=== PATIENT | female | born 1990 | race Caucasian/White ===

== ENCOUNTER 2020-12-12 12:49 | Emergency (ER) | payer BC ==
[~2020-12-12] VITALS: Ht 160 cm; Wt 65.0 kg
--- NOTE | 2020-12-12 13:13 | NUR ---
Report received from EMS staff, pt in room on L side curled up and making loud bearing down noises and grunting/crying out noises. Pt changed into gown, yarn skeins examiner completed, and pt found to be dry heaving with scant clear mucous-like "emesis" after forced gagging noted. at bedside states pt has been worked up for possible cyclic vomiting by multiple ER doctors in [place], [place] where they are from, but that her GI MD and PCP think it IBS due to stress. Pt has an anxiety disorder as only other stated PMH and does not take medications for it.
[2020-12-12] MEDS ORDERED: CHOL10003 PO (13:40)
[2020-12-12] MEDS ORDERED: HYDR-826 PO (13:40)
[2020-12-12] MEDS ORDERED: OMEP-110 PO (13:40)
[2020-12-12] MEDS ORDERED: VITA1CAP7 PO (13:40)
--- NOTE | 2020-12-12 14:04 | NUR ---
Pt still rolling on bed back and forth with loud wretching noises but no emesis. Awaiting MD albarado.
--- NOTE | 2020-12-12 14:15 | NUR ---
Attempted to draw labs from IV site started by EMS but unable to get decent back flow. Site flushes easily and NS bolus running wihtout issue now.
[2020-12-12] MEDS ORDERED: ONDANSETRON 2MG/ML, 2ML ONE (14:17)
--- NOTE | 2020-12-12 14:18 | NUR ---
Lab at bedside for draw. Zofran given for nausea.
[2020-12-12] MEDS ORDERED: SODIUM CHLORIDE FLUSH 10ML SYR IVF ONE (14:30)
[2020-12-12] MEDS ORDERED: ONDANSETRON 2MG/ML, 2ML IVPush ONE (14:30)
[2020-12-12] MEDS ORDERED: SODIUM CHLORIDE 0.9% 1,000ML IVBOLUS ONE (14:30)
[2020-12-12 14:42] LABS: ALANINE AMINOTRANSFERASE 21 U/L (12-78); ALBUMIN 3.4 g/dL (3.4-5.0); ANION GAP 13 mmol/L (5-15); BASOPHILS % (AUTO) 1 % (0-1); CHLORIDE 110 mmol/L (98-107); CREATININE 0.81 mg/dL (0.55-1.02); EOSINOPHILS % (AUTO) 0 % (1-7); LYMPHOCYTES % (AUTO) 21 % (22-44); MEAN CORPUSCULAR HEMOGLOBIN 30.8 pg (27.0-34.8); MEAN CORPUSCULAR HGB CONC 33.8 g/dL (32.4-35.8); MEAN PLATELET VOLUME 8.7 fL (7.4-10.4); MONOCYTES % (AUTO) 6 % (2-9); NEUTROPHILS % (AUTO) 73 % (42-75); PLATELET COUNT 245 x10^3/uL (130-400); RED BLOOD COUNT 4.13 x10^6/uL (3.82-5.3); RED CELL DISTRIBUTION WIDTH 12.6 % (9.6-15.2)
[2020-12-12 14:45] LABS: ALKALINE PHOSPHATASE 41 U/L (45-117); BILIRUBIN,TOTAL 0.8 mg/dL (0.2-1.0); TOTAL PROTEIN 6.7 g/dL (6.4-8.2)
--- NOTE | 2020-12-12 14:45 | NUR ---
No change noted in pt behavior or c/o of N/V after chinese medicine practitioner. Awaiting lab results. Report given and care transferred to KYLE Rojo
--- NOTE | 2020-12-12 14:48 | NUR ---
report from geoffrey almonte.
[2020-12-12] MEDS ORDERED: hydrOXYzine 50 MG/ML IM ONE (15:04)
[2020-12-12] MEDS ORDERED: PROMETHAZINE 25 MG/ML, 1ML ONE (15:23)
[2020-12-12] MEDS ORDERED: PANTOPRAZOLE 40 MG IV ONE (15:23)
[2020-12-12] MEDS ORDERED: ZIPRASIDONE 20 MG INJ IM ONE ×2 (15:23→15:30)
[2020-12-12] MEDS ORDERED: PROMETHAZINE 25 MG/ML, 1ML IM ONE (15:30)
[2020-12-12] MEDS ORDERED: PLEASE ENTER ALLERGIES MC SCH (15:30)
--- NOTE | 2020-12-12 15:30 | NUR ---
pt resting in room, no vomiting seen. when RN enters room pt will lay over and make very loud grunting noises, however, no emesis noted. at bedside
[2020-12-12] MEDS ORDERED: PANTOPRAZOLE 40 MG IV IVPush ONE (16:02)
--- NOTE | 2020-12-12 16:35 | NUR ---
pt sleeping after director medical surgical. resp even and unlabored
[2020-12-12 16:55] VITALS: BP 142/79
--- NOTE | 2020-12-12 18:20 | NUR ---
PT UP FOR DC. PT SLEEPING WITH NO VOMITING NOTED. UPON ENTERING ROOM TO DC IV AND GIVE DC PAPERWORK PT BEGAN GETTING VERY ANXIOUS STATING "I DON'T WANT TO GO, I WANT TO STAY IN THE HOSPITAL SO YOU GUYS CAN MANAGE MY PAIN AND NAUSEA". PT EDUCATED ON PREVIOUS SCRIPTS FROM OTHER HOSPITAL VISITS AND TODAYS VISIT AND TIME FOR MEDS TO HELP AND HOW SHE AND HER CAN MANAGE EVERYTHING AT HOME. PT REFUSING EDUCATION AND IS DEMANDING TO SEE MD. VERBALIZES UNDERSTANDING AND ALL QUESTION FOR HIM HAVE BEEN ANSWERED. HAS DC PLAN IN PLACE WITH WHEELCHAIR SET UP, RIDES TO AND FROM [facility] TOMORROW. PT REFUSING TO GET DRESSED. IV DC'D WITH TIP INTACT. DR DELACRUZ AWARE OF PTS CONCERNS.
--- NOTE | 2020-12-12 19:00 | NUR ---
REPORT GIVEN TO SANDIE WRIGHT.
[2020-12-12] MEDS ORDERED: SODIUM CHLORIDE 0.9%, 500ML IVBOLUS ONE (19:30)
--- NOTE | 2020-12-12 19:36 | NUR ---
Note andra in ED - 12/12/20 at [email or web address] DELACRUZ BACK TO REVIEW DC WITH SPOUSE AND PT. PT AMBULATORY TO DC DESK WITH SPOUSE.
--- NOTE | 2020-12-12 19:37 | NUR ---
DR DELACRUZ BACK TO REVIEW DC WITH SPOUSE AND PT. PT AMBULATORY TO DC DESK WITH SPOUSE
== END 2020-12-12 19:39 | disposition home or self-care (01) ==
LOC: ED 19:20
DX: K58.9 Irritable bowel syndrome, unspecified (principal); R11.2 Nausea with vomiting, unspecified
CPT/HCPCS: 36415; 80053; 83605; 83690; 85025; 96361; 96372; 96374; 96375; 99284; C9113; J2405; J2550; J3410; J3486; J7030